=== PATIENT | male | born 1950 | race Caucasian/White ===

== ENCOUNTER 2016-12-28 20:33 | Inpatient (IN) | payer MEDICARE, OTHER ==
[~2016-12-28] VITALS: Ht 175.3 cm; Wt 85.6 kg
[~2016-12-28 20:33] MED LIST: /ADVA50050; /ADVA50050 IN; /DILT30TAB OR; /DILT60TAB PO; /GLIM2TA; /GLIM4TA; /GLYB5TA PO; /INSU7030 SC; /IPRA3SP; /MOXI40TA OR; /PANT40TA; /QUIN20TA; /TIOT18INH INH; /WARF3TA OR; /WARF5TA; /WARF5TA OR; ALBU1.25 IN; ALBU83IN; ALBU83IN IN; ALBUTEROL; ALDA25TA2 OR; CARV12.5 PO; CEFT500T; COLA100C2; CORE12.5; CORE12.5 OR; CORE25TA PO; COUM2.5T11 PO; DIGO0.25 PO; DIGO0.257; DIGO0.257 OR; DIGO25TA PO; EUCECRE2 EX; FLAG500T PO; FLEC50TA PO; FLEC50TA2 OR; FLEXERIL PO; FLOVENT INH; FURO40TA2; FURO40TA2 PO; GLYB5TA PO; INSULANT SC; IPRASOL4 INH; LANO0.252; LASI40TA OR; LISI-542 PO; METF500T PO; Mucinex PO; NITR0.4S SL; NYSTATIN ORAL SS; PRED10TA FT; PRED10TA2 PO; PRED20TA OR; PRED20TA PO; PRIN10TA OR; SIMV20TA2 PO; SLOWTAB OR; TORS20TA2 PO; TRAM50TA2 OR; VENTAER; VENTAER INH; VICO5TAB OR; VITA100066 PO; VITA400C2 PO; VITAD1000T OR; VITMTA PO; WARF-18 PO; WARF-23 PO; Warfarin PO; ZOCO40TA OR
[2016-12-28] MEDS: IPRATROPIUM 0.5MG/ALBUTEROL 2.5MG INH SOL UD 3ML (DUONEB)(J7620) NEB PRN ×2 (22:01→23:03)
[2016-12-28 22:07] LABS: INR 1.7
[2016-12-28 22:09] LABS: BASO # 0.1 K/mm3 (0.0-0.2); BASO % 0.5 % (0.0-1.0); EOS # 0.3 K/mm3 (0.0-0.50); EOS % 2.4 % (0.0-3.0); LARGE UNSTAINED CELL # 0.1 K/mm3 (0.0-0.4); LARGE UNSTAINED CELL % 1.1 % (0.0-4.0); LYMPH # 1.4 K/mm3 (1.5-4.5); LYMPH % 9.6 % (24.0-44.0); MEAN CORPUSCULAR HGB CONC 31.5 g/dl (32.0-36.5); MEAN CORPUSCULAR VOLUME 95.1 fl (80.0-96.0); MONO # 0.6 K/mm3 (0.0-0.8); MONO % 4.4 % (0.0-5.0); NEUTROPHILS # 10.4 K/mm3 (1.8-7.7); NEUTROPHILS % 82.1 % (36.0-66.0); PLATELET COUNT, AUTOMATED 174 k/mm3 (150-450); RED CELL DISTRIBUTION WIDTH 13.2 % (11.5-14.5); WHITE BLOOD COUNT 12.6 K/mm3 (4.0-10.0)
[2016-12-28 22:16] LABS: ANION GAP 4 MEQ/L (8-16); BLOOD UREA NITROGEN 31 MG/DL (7-18); CALCIUM LEVEL 8.7 MG/DL (8.8-10.2); CARBON DIOXIDE LEVEL 42 MEQ/L (21-32); CHLORIDE LEVEL 94 MEQ/L (98-107); CREATININE FOR GFR 0.84 MG/DL (0.70-1.30); GLOMERULAR FILTRATION RATE > 60.0 (>49); GLUCOSE, FASTING 276 MG/DL (80-110); POTASSIUM SERUM 4.6 MEQ/L (3.5-5.1); SODIUM LEVEL 140 MEQ/L (136-145)
[2016-12-28 22:26] LABS: ALBUMIN 2.9 GM/DL (3.2-5.2); ALBUMIN/GLOBULIN RATIO 0.78 (1.00-1.93); ALKALINE PHOSPHATASE 97 U/L (45-117); ALT/SGPT 10 U/L (12-78); AST/SGOT 10 U/L (15-37); BILIRUBIN,DIRECT < 0.1 MG/DL (0.0-0.2); BILIRUBIN,TOTAL 0.2 MG/DL (0.2-1.0); TOTAL PROTEIN 6.6 GM/DL (6.4-8.2)
[2016-12-28 23:18] LABS: ABG BASE EXCESS 10.1 (-2.0-2.0); ABG HCO3 37.8 MEQ/L (22.0-26.0); ABG STANDARD HCO3 33.7 MEQ/L (22.0-26.0); ABG TOTAL CO2 39.9 MEQ/L (23.0-31.0); ABG pH (ARTERIAL) 7.364 UNITS (7.350-7.450)
[2016-12-28 23:20] LABS: ABG PARTIAL PRESSURE CO2 67.8 mmHg (35.0-45.0)
--- NOTE | 2016-12-28 23:30 | REPUSA ---
Clinical history: Pain, swelling. comparison: 11/02/2006. Findings: The common femoral veins bilaterally compress normally and demonstrate normal color Doppler flow. Normal venous waveforms with augmentation are seen in this region. However, there is only pa rtial compressibility seenthroughout the superficial femoral and popliteal veins bilaterally. This is grossly unchanged since the prior study of 2006. The distal venous structures appear unremarkable. Impression: Chronic nonocclusive thrombus demonstrated in the superficial femoral and popliteal veins bilaterally , grossly unchanged since 2006. No acute findings.
[2016-12-29] MEDS ORDERED: TYLE500T78 PO (00:12)
[2016-12-29] MEDS ORDERED: GLIP5TAB15 PO (00:12)
[2016-12-29] MEDS ORDERED: METF-699 PO (00:12)
[2016-12-29] MEDS ORDERED: WARF-18 PO (00:12)
[2016-12-29] MEDS ORDERED: DEXTROSE 50% 50 ML SYRINGE IV PRN (00:15)
[2016-12-29] MEDS ORDERED: GLUCAGON FOR INJ 1 MG VIAL (J1610) SC PRN (00:15)
[2016-12-29] MEDS ORDERED: ALBUTEROL SULFATE 2.5 MG/0.5 ML INH NEB SOLN NEB PRN (00:15)
[2016-12-29] MEDS ORDERED: GLUCOSE 4 GM CHEW TABLET PO PRN (00:15)
[2016-12-29 00:45] VITALS: BP 176/77
--- NOTE | 2016-12-29 01:13 | REP ---
Clinical: Dyspnea and cough. Technique: PA and lateral. Comparison: 06/05/2016. Findings: Diffuse chronic fibroatelectatic changes are appreciated. Superimposed scattered atelectasis and subtle infiltrate involving the perihilar and lower lobe regions cannot be excluded. No effusion. No pneumothorax. Skeletal structures demonstrate a dilated osteopenia. Cardiac silhouette is normal. Pacemaker stable. Impression: Diffuse chronic fibro atelectatic changes and scarring similar to prior examination. Subtle superimposed acute process cannot be excluded. Signed by Sixto Winters MD 12/29/2016 01:05 A
[2016-12-29] MEDS: methylPREDNISolone INJ 40 MG/1 ML VIAL (J2920) IV SCH ×4 (02:00→21:01)
[2016-12-29] MEDS: SENOKOT S TAB PO SCH ×3 (02:16→21:02)
[2016-12-29] MEDS: SIMVASTATIN 20 MG TAB PO SCH ×2 (02:16→21:01)
[2016-12-29] MEDS: CARVedilol 12.5 MG TAB PO SCH ×3 (02:16→21:02)
[2016-12-29] MEDS: cefTRIAXone SOD 1 GM in D5W MINI-BAG PLUS 50 ML IV SCH (02:17)
[2016-12-29] MEDS: IPRATROPIUM 0.5MG/ALBUTEROL 2.5MG INH SOL UD 3ML (DUONEB)(J7620) NEB SCH ×5 (03:51→19:48)
[2016-12-29 06:00] VITALS: BP 154/68
--- NOTE | 2016-12-29 06:06 | ECGEPIP ---
Stationary ECG Study [facility] - ED Test Date: 2016-12-28 Pat Name: EAGLE DAY Department: Room: - Gender: M Pharmacy Assistant: catalina : 1950 Requested By: ANTONY Vargas Order Number: [id number] Reading MD: Tony Calle Measurements Intervals [place] Rate: 90 P: 104 OR: 172 QRS: -59 QRSD: 144 T: 110 QT: 362 QTc: 443 Interpretive Statements SINUS RHYTHM WITH FREQUENT SUPRAVENTRICULAR PREMATURE COMPLEXES IN A BIGEMINAL PATTERN RBBB LEFT VENTRICULAR HYPERTROPHY AND ST-T CHANGE RHYTHM CHANGE COMPARED TO 06/12/16 Electronically Signed On 12-29-2016 6:05:51 EDT by Tony Calle
[2016-12-29 06:58] LABS: BASO % 0.1 % (0.0-1.0); EOS % 0.1 % (0.0-3.0); LARGE UNSTAINED CELL % 0.2 % (0.0-4.0); LYMPH # 0.7 K/mm3 (1.5-4.5); LYMPH % 7.6 % (24.0-44.0); MEAN CORPUSCULAR HEMOGLOBIN 30.4 pg (27.0-33.0); MEAN CORPUSCULAR HGB CONC 31.4 g/dl (32.0-36.5); MEAN CORPUSCULAR VOLUME 96.8 fl (80.0-96.0); MONO # 0.1 K/mm3 (0.0-0.8); MONO % 0.9 % (0.0-5.0); NEUTROPHILS # 7.8 K/mm3 (1.8-7.7); NEUTROPHILS % 91.1 % (36.0-66.0); PLATELET COUNT, AUTOMATED 152 k/mm3 (150-450); WHITE BLOOD COUNT 8.6 K/mm3 (4.0-10.0)
[2016-12-29] MEDS: HumaLOG INSULIN (NovoLOG) PER UNIT SC SCH ×4 (07:30→21:02)
[2016-12-29 07:33] LABS: ANION GAP 3 MEQ/L (8-16); BLOOD UREA NITROGEN 32 MG/DL (7-18); CALCIUM LEVEL 8.3 MG/DL (8.8-10.2); CARBON DIOXIDE LEVEL 41 MEQ/L (21-32); CHLORIDE LEVEL 93 MEQ/L (98-107); CREATININE FOR GFR 0.79 MG/DL (0.70-1.30); DIGOXIN LEVEL 1.1 NG/ML (0.5-2.0); GLOMERULAR FILTRATION RATE > 60.0 (>49); GLUCOSE, FASTING 362 MG/DL (80-110); SODIUM LEVEL 137 MEQ/L (136-145)
--- NOTE | 2016-12-29 09:11 | HPE ---
DATE OF ADMISSION: 12/29/2016 PRIMARY CARE PROVIDER: Sully Rhoda. CHIEF COMPLAINT: Increasing shortness of breath and difficulty breathing for 3 days. PAST MEDICAL HISTORY: Chronic obstructive pulmonary disease (COPD). Chronic hypoxic and hypercarbic respiratory failure. Atrial fibrillation with history of tachybrady syndrome, has pacemaker. Chronic bilateral deep venous thrombosis (DVT)s. Hypertension. Diabetes. Systolic congestive heart failure. Obstructive sleep apnea (AMILCAR) not compliant with CPAP. HISTORY OF PRESENT ILLNESS: This is a 66-year-old male who was in his usual state of health until about 3 days ago when he started developing shortness of breath which worsened over the course of next 3 days and today he used four nebulizer treatments in 8 hour period without any improvement in his breathing so called EMS. EMS went to his house and found him to be hypoxic to 76% with his usual 3 liters of oxygen so was brought to the emergency room. In the ED, the patient was found to have chronic obstructive pulmonary disease (COPD) exacerbation. Patient was given several nebulizers with some improvement in his breathing status, however, still continued to be wheezy and tight and short of breath, so the patient was admitted to the hospitalist service for chronic obstructive pulmonary disease (COPD) exacerbation. Patient had lab work done in the ED which showed chronic hypercarbia and hypoxia with normal pH and ABG. WBC was mildly elevated to 12.6. He was mildly anemic to 10.7. His sugars were elevated to 276. Patient had ultrasound of both the lower extremities done which showed bilateral chronic nonocclusive thrombus of the superficial femoral and popliteal veins unchanged from 2006. Had a chest x-ray done which showed diffuse chronic fibroatelectatic changes and scarring similar to prior examination. Subtle superimposed acute process cannot be excluded. Patient's EKG showed atrial fibrillation with controlled rate with intermittent pacemaker complexes. PAST SURGICAL HISTORY: Pacemaker placement. Tonsillectomy. Vascular surgery for deep venous thrombosis (DVT) of the right lower extremity. ALLERGIES: AMINOGLYCOSIDES, BACITRACIN, NEOMYCIN, PEANUT and POLYMYXIN B. HOME MEDICATIONS: - Tylenol 1000 mg by mouth every 6 hours as needed pain - albuterol/ipratropium nebulizer solution four times a day - Coreg 12.5 mg by mouth twice daily - cholecalciferol 1000 units by mouth daily - digoxin 0.25 mg by mouth daily - glipizide 5 mg by mouth daily - lisinopril 5 mg by mouth daily - metformin 500 mg by mouth daily - multivitamins one tablet daily - simvastatin 20 mg at bedtime - torsemide 20 mg by mouth daily - vitamin E 400 units by mouth daily - Coumadin 2.5 mg by mouth daily SOCIAL HISTORY: Patient smokes about 5 to 6 cigarettes per day. Does not drink alcohol or abuse recreational drugs. FAMILY HISTORY: Nothing significant. REVIEW OF SYSTEMS: Patient denied any fever or chills but does have some chronic cough without any expectoration but not changed from usual. Denies any abdominal pain, nausea, vomiting or diarrhea. Does have some intermittent palpitation. Says he may have some sick contact as has young grandchildren at home. PHYSICAL EXAMINATION: Vital signs: Temperature 98.3, pulse 91, respiratory rate 22, blood pressure 147/67, pulse oximetry 95% with 4 liters nasal cannula. General: Patient awake, alert, oriented times three, lying down in bed in no acute distress. HEENT: Normocephalic, atraumatic. Moist mucous membranes. Anicteric eyes. Chest: Bilateral diffuse wheezing, decreased breath sounds. Cardiovascular: S1, S2, irregular. No rub, murmur or gallop. Abdomen: Soft, nontender. Bowel sounds present. Extremities: 1-2+ edema. LABORATORY DATA: WBC 12.6, hemoglobin 10.7, platelets 174. Sodium 140, potassium 4.6, chloride 94, bicarbonate 42, BUN 31, creatinine 0.8, glucose 276, calcium 8.6, liver function tests are normal. Cardiac enzymes negative. BNP 369. Chest x-ray and vascular ultrasound reviewed as noted above. ASSESSMENT AND PLAN: This is a 66-year-old male admitted for chronic obstructive pulmonary disease (COPD) exacerbation. PLAN: 1. For chronic obstructive pulmonary disease (COPD) exacerbation, we will continue the patient on nebulizer solution. Will give IV steroids and ceftriaxone as chest x-ray cannot rule out any underlying new infiltrates. 2. Diabetes. Will continue patient on glipizide and sliding scale insulin. 3. Hypertension. Will continue the patient on Coreg. 4. Chronic bilateral deep venous thrombosis (DVT)s. Will continue the patient on Coumadin. 5. Hyperlipidemia. Will continue the patient on simvastatin. 6. Chronic systolic congestive heart failure. Will continue the patient on torsemide. 7. Atrial fibrillation. Will continue the patient on digoxin, metoprolol, Coreg and Coumadin. 8. Deep venous thrombosis (DVT) prophylaxis. Patient is on Coumadin. 9. Gastrointestinal (GI) prophylaxis with pantoprazole has been ordered.
[2016-12-29] MEDS: DIGOXIN 0.25 MG TAB PO SCH (10:09)
[2016-12-29] MEDS: TORSEMIDE 20 MG TAB PO SCH (10:09)
[2016-12-29] MEDS: LISINOPRIL 5 MG TAB PO SCH (10:09)
[2016-12-29] MEDS: glipiZIDE XL 5 MG TABCR PO SCH (10:10)
[2016-12-29] MEDS: WARFARIN SOD 2.5 MG TAB PO SCH (10:10)
[2016-12-29] MEDS: PANTOPRAZOLE 40MG TAB (PROTONIX) PO SCH (10:10)
[2016-12-29 14:00] VITALS: BP 133/62
--- NOTE | 2016-12-29 16:38 | IPNPDOC ---
Text Note Date of Service The patient was seen on 12/29/16. NOTE Subjective: Patient is a 66 year old male with a PMHx of COPD on 3L of O2 at home , A. fib, Tachy/dawson syndrome s/p PM, Chronic bilateral DVT, HTN, DM2, Systolic CHF, AMILCAR not compliant with CPAP who presented to the ER with shortness of breath for 3 days. Patient came to the ER after his breathing did not improved with nebulization and was found to be hypoxic at 76%. He was found to be wheezing. He was admitted to the hospitalist service for acute COPD exacerbation. Patient was seen and examined at the bedside. He notes improvement in his breathing and denied any other issues. Objective: Vitals (See below) General: Lying in bed, no acute distress, comfortable, AAOx3 HEENT: NC, AT CVS: Irregularly irregular , +S1S2 Lungs: Fair air entry b/l, + Wheezing bilaterally Abdomen: Soft, ND, NT, +BSx4 Extremities: +PPx4, - Edema, - Calf tenderness Assessment and plan: 1. Dyspnea - likely 2/2 acute hypercapnic and acute on chronic hypoxic respiratory failure - likely 2/2 acute COPD exacerbation - Presented to ER with SOB not improved with nebulization treatment - Physical with diffuse wheezing - ABG revealed increased CO2 retention - CXR reveals diffuse chronic fibro-atelectatic changes, similar to prior - c/w Solumedrol, Duoneb and Ceftriaxone (Day #1) - Will start Advair 2. NIDDM2 - will start Levemir for better glycemic control - c/w ISS and Glipizide 3.HTN - BP well controlled - c/w Carvedilol and Lisinopril with holding parameters 4. Chronic bilateral DVT - US reveals persistant DVT, unchanged - INR of 1.70 - c/w Coumadin 2.5 - Will adjust tomorrow if not therapeutic 5. DLP - c/w simvastatin 6. Chronic systolic CHF - c/w Torsemide 7. A. fib - c/w Digoxin and Carvedilol - c/w Coumadin 8. GI prophylaxis - c/w Protonix 9. DVT prophylaxis - already on full anticoagulation with Coumadin VS,Fishbone, I+O VS, Fishbone, I+O Laboratory Tests 12/28/16 20:56 Red Blood Count 3.56 L, Mean Corpuscular Volume 95.1, Mean Corpuscular Hemoglobin 30.0, Mean Corpuscular Hemoglobin Concent 31.5 L, Red Cell Distribution Width 13.2, Neutrophils (%) (Auto) 82.1 H, Lymphocytes (%) (Auto) 9.6 L, Monocytes (%) (Auto) 4.4, Eosinophils (%) (Auto) 2.4, Basophils (%) (Auto ) 0.5, Neutrophils # (Auto) 10.4 H, Lymphocytes # (Auto) 1.4 L, Monocytes # ( Auto) 0.6, Eosinophils # (Auto) 0.3, Basophils # (Auto) 0.1, Calcium Level 8.7 L , Total Creatine Kinase 55 12/29/16 06:31 Red Blood Count 3.36 L, Mean Corpuscular Volume 96.8 H, Mean Corpuscular Hemoglobin 30.4, Mean Corpuscular Hemoglobin Concent 31.4 L, Red Cell Distribution Width 13.0, Neutrophils (%) (Auto) 91.1 H, Lymphocytes (%) (Auto) 7.6 L, Monocytes (%) (Auto) 0.9, Eosinophils (%) (Auto) 0.1, Basophils (%) (Auto ) 0.1, Neutrophils # (Auto) 7.8 H, Lymphocytes # (Auto) 0.7 L, Monocytes # (Auto ) 0.1, Eosinophils # (Auto) 0.0, Basophils # (Auto) 0.0, Calcium Level 8.3 L Vital Signs Date Time Temp Pulse Resp B/P (MAP) Pulse Ox O2 Delivery O2 Flow Rate FiO2 12/29/16 10:25 Nasal Cannula 5.0 12/29/16 10:09 134/62 12/29/16 10:09 70 12/29/16 06:00 98.5 18 88 I&O- Last 24 Hours up to 6 AM 12/29/16 06:00 Intake Total 480 ml Output Total 300 ml Balance 180 ml CURT MAYBERRY MD December 29, 2016 16:38
[2016-12-29 19:41] VITALS: O2SAT 95
[2016-12-29] MEDS: ADVAIR DISKUS 250/50 INH PWD INH SCH (19:50)
[2016-12-29] MEDS: LEVEMIR (INSULIN DETEMIR) 1 UNITS/0.01ML SC SCH (21:00)
[2016-12-29 22:00] VITALS: BP 150/67
[2016-12-30 00:41] VITALS: O2SAT 98
[2016-12-30] MEDS: IPRATROPIUM 0.5MG/ALBUTEROL 2.5MG INH SOL UD 3ML (DUONEB)(J7620) NEB SCH ×8 (00:48→22:29)
[2016-12-30] MEDS: cefTRIAXone SOD 1 GM in D5W MINI-BAG PLUS 50 ML IV SCH (01:18)
[2016-12-30] MEDS: methylPREDNISolone INJ 40 MG/1 ML VIAL (J2920) IV SCH ×4 (01:18→23:20)
[2016-12-30 05:46] VITALS: O2SAT 97
[2016-12-30 06:00] VITALS: BP 138/63
[2016-12-30 06:04] LABS: ABG BASE EXCESS 11.6 (-2.0-2.0); ABG HCO3 41.2 MEQ/L (22.0-26.0); ABG PARTIAL PRESSURE O2 152.6 mmHg (75.0-100.0); ABG STANDARD HCO3 35.4 MEQ/L (22.0-26.0); ABG pH (ARTERIAL) 7.275 UNITS (7.350-7.450)
[2016-12-30 06:10] LABS: ABG PARTIAL PRESSURE CO2 90.8 mmHg (35.0-45.0)
[2016-12-30 06:56] LABS: BASO % 0.1 % (0.0-1.0); EOS % 0.1 % (0.0-3.0); INR 2.08; LARGE UNSTAINED CELL # 0.1 K/mm3 (0.0-0.4); LARGE UNSTAINED CELL % 0.5 % (0.0-4.0); LYMPH % 8.9 % (24.0-44.0); MEAN CORPUSCULAR HEMOGLOBIN 29.8 pg (27.0-33.0); MEAN CORPUSCULAR HGB CONC 31.5 g/dl (32.0-36.5); MEAN CORPUSCULAR VOLUME 94.6 fl (80.0-96.0); MONO # 0.3 K/mm3 (0.0-0.8); MONO % 3.1 % (0.0-5.0); NEUTROPHILS # 8.9 K/mm3 (1.8-7.7); NEUTROPHILS % 87.2 % (36.0-66.0); PLATELET COUNT, AUTOMATED 173 k/mm3 (150-450); RED CELL DISTRIBUTION WIDTH 13.1 % (11.5-14.5); WHITE BLOOD COUNT 10.2 K/mm3 (4.0-10.0)
[2016-12-30 07:12] LABS: ANION GAP 2 MEQ/L (8-16); CALCIUM LEVEL 8.3 MG/DL (8.8-10.2); CARBON DIOXIDE LEVEL 40 MEQ/L (21-32); CHLORIDE LEVEL 95 MEQ/L (98-107); GLUCOSE, FASTING 325 MG/DL (80-110); SODIUM LEVEL 137 MEQ/L (136-145)
[2016-12-30 07:24] LABS: POTASSIUM SERUM 5.3 MEQ/L (3.5-5.1)
[2016-12-30 07:25] LABS: BLOOD UREA NITROGEN 55 MG/DL (7-18); CREATININE FOR GFR 1.18 MG/DL (0.70-1.30); GLOMERULAR FILTRATION RATE > 60.0 (>49)
[2016-12-30] MEDS: SENOKOT S TAB PO SCH ×2 (09:00→19:59)
[2016-12-30] MEDS: ADVAIR DISKUS 250/50 INH PWD INH SCH ×2 (09:00→19:54)
[2016-12-30] MEDS: PANTOPRAZOLE 40MG TAB (PROTONIX) PO SCH (09:25)
[2016-12-30] MEDS: DIGOXIN 0.25 MG TAB PO SCH (09:26)
[2016-12-30] MEDS: LISINOPRIL 5 MG TAB PO SCH (09:26)
[2016-12-30] MEDS: WARFARIN SOD 2.5 MG TAB PO SCH (09:26)
[2016-12-30] MEDS: CARVedilol 12.5 MG TAB PO SCH ×2 (09:26→19:59)
[2016-12-30] MEDS: TORSEMIDE 20 MG TAB PO SCH (09:26)
[2016-12-30] MEDS: glipiZIDE XL 5 MG TABCR PO SCH (09:27)
[2016-12-30] MEDS: HumaLOG INSULIN (NovoLOG) PER UNIT SC SCH ×4 (09:29→20:00)
[2016-12-30] MEDS ORDERED: SOD POLYSTYRENE SULFONATE SUSP 15 GM/60 ML UD PO ONE (11:15)
--- NOTE | 2016-12-30 12:59 | IPNPDOC ---
Text Note Date of Service The patient was seen on 12/30/16. NOTE Subjective: Patient is a 66 year old male with a PMHx of COPD on 3L of O2 at home , A. fib, Tachy/dawson syndrome s/p PM, Chronic bilateral DVT, HTN, DM2, Systolic CHF, AMILCAR not compliant with CPAP who presented to the ER with shortness of breath for 3 days. Patient came to the ER after his breathing did not improved with nebulization and was found to be hypoxic at 76%. He was found to be wheezing. He was admitted to the hospitalist service for acute COPD exacerbation. Patient was seen and examined at the bedside. He notes that overnight he had some breathing difficulty, but is not experiencing any problems after receiving a breathing treatment. Objective: Vitals (See below) General: Lying in bed, no acute distress, comfortable, AAOx3 HEENT: NC, AT CVS: Irregularly irregular , +S1S2 Lungs: Fair air entry b/l, + Wheezing bilaterally Abdomen: Soft, ND, NT, +BSx4 Extremities: +PPx4, - Edema, - Calf tenderness Assessment and plan: 1. Dyspnea - likely 2/2 acute hypercapnic and acute on chronic hypoxic respiratory failure - likely 2/2 acute COPD exacerbation - Presented to ER with SOB not improved with nebulization treatment - Physical with diffuse wheezing but no signs of respiratory distress upon evaluation this AM - ABG revealed increased CO2 retention; this morning showed worsening - CXR reveals diffuse chronic fibro-atelectatic changes, similar to prior - c/w Solumedrol, Advair, Duoneb and Ceftriaxone (Day #2) - Will adjust dose of Solumedrol 2. History of AMILCAR - Has had sleep study completed and patient was told he needed a CPAP - Has had titration study completed for mask fitting - Patient is not compliant with mask - Will c/w O2 therapy at night 3. NIDDM2 - c/w ISS, Levemir and Glipizide 4. HTN - BP well controlled - c/w Carvedilol and Lisinopril with holding parameters 5. Chronic bilateral DVT - US reveals persistent DVT, unchanged - INR of 2.08 - c/w Coumadin 2.5 6. DLP - c/w simvastatin 7. Chronic systolic CHF - c/w Torsemide 8. A. fib - c/w Digoxin and Carvedilol - c/w Coumadin 9. GI prophylaxis - c/w Protonix 10. DVT prophylaxis - already on full anticoagulation with Coumadin VS,Fishbone, I+O VS, Fishbone, I+O Laboratory Tests 12/30/16 06:24 Red Blood Count 3.29 L, Mean Corpuscular Volume 94.6, Mean Corpuscular Hemoglobin 29.8, Mean Corpuscular Hemoglobin Concent 31.5 L, Red Cell Distribution Width 13.1, Neutrophils (%) (Auto) 87.2 H, Lymphocytes (%) (Auto) 8.9 L, Monocytes (%) (Auto) 3.1, Eosinophils (%) (Auto) 0.1, Basophils (%) (Auto ) 0.1, Neutrophils # (Auto) 8.9 H, Lymphocytes # (Auto) 1.0 L, Monocytes # (Auto ) 0.3, Eosinophils # (Auto) 0.0, Basophils # (Auto) 0.0, Calcium Level 8.3 L Vital Signs Date Time Temp Pulse Resp B/P (MAP) Pulse Ox O2 Delivery O2 Flow Rate FiO2 12/30/16 09:26 138/63 12/30/16 09:26 79 12/30/16 06:00 98.3 16 99 Nasal Cannula 5.0 I&O- Last 24 Hours up to 6 AM 12/30/16 06:00 Intake Total 1420 ml Output Total 1425 ml Balance -5 ml CURT MAYBERRY MD December 30, 2016 12:59
[2016-12-30 14:00] VITALS: BP 127/87
[2016-12-30] MEDS: SIMVASTATIN 20 MG TAB PO SCH (19:59)
[2016-12-30] MEDS: LEVEMIR (INSULIN DETEMIR) 1 UNITS/0.01ML SC SCH (20:00)
[2016-12-30 22:00] VITALS: BP 121/83
[2016-12-31] MEDS: cefTRIAXone SOD 1 GM in D5W MINI-BAG PLUS 50 ML IV SCH (01:23)
[2016-12-31] MEDS: IPRATROPIUM 0.5MG/ALBUTEROL 2.5MG INH SOL UD 3ML (DUONEB)(J7620) NEB SCH ×6 (03:19→23:31)
[2016-12-31 06:00] VITALS: BP 163/86
[2016-12-31 06:32] LABS: ABG BASE EXCESS 10.4 (-2.0-2.0); ABG HCO3 40.1 MEQ/L (22.0-26.0); ABG PARTIAL PRESSURE O2 83.3 mmHg (75.0-100.0); ABG STANDARD HCO3 34.1 MEQ/L (22.0-26.0); ABG TOTAL CO2 42.7 MEQ/L (23.0-31.0)
[2016-12-31 06:35] LABS: ABG PARTIAL PRESSURE CO2 87.2 mmHg (35.0-45.0)
[2016-12-31 07:12] LABS: BASO % 0.1 % (0.0-1.0); EOS % 0.1 % (0.0-3.0); LARGE UNSTAINED CELL # 0.2 K/mm3 (0.0-0.4); LARGE UNSTAINED CELL % 1.1 % (0.0-4.0); LYMPH # 1.1 K/mm3 (1.5-4.5); LYMPH % 6.5 % (24.0-44.0); MEAN CORPUSCULAR HEMOGLOBIN 29.5 pg (27.0-33.0); MEAN CORPUSCULAR HGB CONC 30.7 g/dl (32.0-36.5); MEAN CORPUSCULAR VOLUME 96.2 fl (80.0-96.0); MONO # 0.5 K/mm3 (0.0-0.8); MONO % 3.3 % (0.0-5.0); NEUTROPHILS # 12.6 K/mm3 (1.8-7.7); NEUTROPHILS % 88.9 % (36.0-66.0); PLATELET COUNT, AUTOMATED 185 k/mm3 (150-450); RED CELL DISTRIBUTION WIDTH 13.1 % (11.5-14.5); WHITE BLOOD COUNT 14.2 K/mm3 (4.0-10.0)
[2016-12-31 07:18] LABS: INR 1.81
[2016-12-31 07:32] LABS: ANION GAP 1 MEQ/L (8-16); BLOOD UREA NITROGEN 56 MG/DL (7-18); CARBON DIOXIDE LEVEL 42 MEQ/L (21-32); CHLORIDE LEVEL 95 MEQ/L (98-107); CREATININE FOR GFR 1.07 MG/DL (0.70-1.30); GLOMERULAR FILTRATION RATE > 60.0 (>49); GLUCOSE, FASTING 276 MG/DL (80-110); POTASSIUM SERUM 4.9 MEQ/L (3.5-5.1); SODIUM LEVEL 138 MEQ/L (136-145)
[2016-12-31] MEDS: CARVedilol 12.5 MG TAB PO SCH ×2 (08:34→21:06)
[2016-12-31] MEDS: methylPREDNISolone INJ 40 MG/1 ML VIAL (J2920) IV SCH ×2 (08:34→21:05)
[2016-12-31] MEDS: glipiZIDE XL 5 MG TABCR PO SCH (08:34)
[2016-12-31] MEDS: WARFARIN SOD 2.5 MG TAB PO SCH (08:34)
[2016-12-31] MEDS: LISINOPRIL 5 MG TAB PO SCH (08:35)
[2016-12-31] MEDS: PANTOPRAZOLE 40MG TAB (PROTONIX) PO SCH (08:35)
[2016-12-31] MEDS: DIGOXIN 0.25 MG TAB PO SCH (08:35)
[2016-12-31] MEDS: HumaLOG INSULIN (NovoLOG) PER UNIT SC SCH ×4 (08:37→22:06)
[2016-12-31] MEDS: SENOKOT S TAB PO SCH ×2 (08:43→21:06)
[2016-12-31] MEDS ORDERED: PREVNAR 13 VACCINE SYRINGE (CPT CODE:90670) IM ONE (09:00)
[2016-12-31] MEDS: ADVAIR DISKUS 250/50 INH PWD INH SCH ×2 (09:00→21:00)
[2016-12-31] MEDS: VITAMIN D 1,000 INTERNATIONAL UNITS TABLET PO SCH (09:00)
[2016-12-31] MEDS: VITAMIN E 400 INTERNATIONAL UNITS CAP PO SCH (09:00)
[2016-12-31] MEDS: MULTIVITAMINS/MINERALS THERAP 1 TAB PO SCH (09:00)
--- NOTE | 2016-12-31 13:40 | IPNPDOC ---
Text Note Date of Service The patient was seen on 12/31/16. NOTE Subjective: Patient is a 66 year old male with a PMHx of COPD on 3L of O2 at home , A. fib, Tachy/dawson syndrome s/p PM, Chronic bilateral DVT, HTN, DM2, Systolic CHF, AMILCAR not compliant with CPAP who presented to the ER with shortness of breath for 3 days. Patient came to the ER after his breathing did not improved with nebulization and was found to be hypoxic at 76%. He was found to be wheezing. He was admitted to the hospitalist service for acute COPD exacerbation. Patient was seen and examined at the bedside. Patient notes that over the last 2 days he has had night time awakenings where he is very short of breath. They resolve after breathing treatments and don't occur during the day. he denies chest pain or palpitations. Denies any orthopnea. Objective: Vitals (See below) General: Lying in bed, no acute distress, comfortable, AAOx3 HEENT: NC, AT CVS: Irregularly irregular , +S1S2 Lungs: Fair air entry b/l, + Wheezing bilaterally Abdomen: Soft, ND, NT, +BSx4 Extremities: +PPx4, - Edema, - Calf tenderness Assessment and plan: 1. Dyspnea - likely 2/2 acute hypercapnic and acute on chronic hypoxic respiratory failure - likely 2/2 acute COPD exacerbation - Presented to ER with SOB not improved with nebulization treatment - Physical with no respiratory distress, but mild diffuse wheezing - ABG again reveals CO2 retention - CXR reveals diffuse chronic fibro-atelectatic changes, similar to prior - c/w Solumedrol, Advair, Duoneb and Ceftriaxone (Day #3) - Will continue to taper dose of Solumedrol 2. History of AMILCAR - Has had sleep study completed and patient was told he needed a CPAP - Has had titration study completed for mask fitting - Patient has a CPAP machine at home that he reports does not function correctly - Will c/w O2 therapy at night - Will need referral to pulmonary for another sleep study 3. NIDDM2 - c/w ISS, Levemir and Glipizide 4. HTN - BP well controlled - c/w Carvedilol and Lisinopril with holding parameters 5. Chronic bilateral DVT - US reveals persistent DVT, unchanged - INR of 1.81 - c/w Coumadin 2.5 6. DLP - c/w simvastatin 7. Chronic systolic CHF - c/w Torsemide 8. A. fib - c/w Digoxin and Carvedilol - c/w Coumadin 9. GI prophylaxis - c/w Protonix 10. DVT prophylaxis - already on full anticoagulation with Coumadin VS,Fishbone, I+O VS, Fishbone, I+O Laboratory Tests 12/31/16 06:49 Red Blood Count 3.51 L, Mean Corpuscular Volume 96.2 H, Mean Corpuscular Hemoglobin 29.5, Mean Corpuscular Hemoglobin Concent 30.7 L, Red Cell Distribution Width 13.1, Neutrophils (%) (Auto) 88.9 H, Lymphocytes (%) (Auto) 6.5 L, Monocytes (%) (Auto) 3.3, Eosinophils (%) (Auto) 0.1, Basophils (%) (Auto ) 0.1, Neutrophils # (Auto) 12.6 H, Lymphocytes # (Auto) 1.1 L, Monocytes # ( Auto) 0.5, Eosinophils # (Auto) 0.0, Basophils # (Auto) 0.0, Calcium Level 8.0 L Vital Signs Date Time Temp Pulse Resp B/P (MAP) Pulse Ox O2 Delivery O2 Flow Rate FiO2 12/31/16 09:05 Nasal Cannula 4.0 12/31/16 08:35 163/86 12/31/16 08:35 108 12/31/16 06:00 99.4 16 99 I&O- Last 24 Hours up to 6 AM 12/31/16 05:59 Intake Total 1320 ml Output Total 2675 ml Balance -1355 ml CURT MAYBERRY MD December 31, 2016 13:40
[2016-12-31] MEDS: SIMVASTATIN 20 MG TAB PO SCH (21:06)
[2016-12-31] MEDS: LEVEMIR (INSULIN DETEMIR) 1 UNITS/0.01ML SC SCH (21:06)
[2016-12-31 22:00] VITALS: BP 138/72
[2017-01-01] MEDS: cefTRIAXone SOD 1 GM in D5W MINI-BAG PLUS 50 ML IV SCH (01:41)
[2017-01-01] MEDS: IPRATROPIUM 0.5MG/ALBUTEROL 2.5MG INH SOL UD 3ML (DUONEB)(J7620) NEB SCH ×6 (03:31→23:36)
[2017-01-01 06:00] VITALS: BP 162/85
[2017-01-01 06:56] LABS: BASO % 0.3 % (0.0-1.0); EOS # 0.1 K/mm3 (0.0-0.50); EOS % 0.4 % (0.0-3.0); LARGE UNSTAINED CELL # 0.2 K/mm3 (0.0-0.4); LARGE UNSTAINED CELL % 1.8 % (0.0-4.0); LYMPH # 1.4 K/mm3 (1.5-4.5); LYMPH % 8.6 % (24.0-44.0); MEAN CORPUSCULAR HEMOGLOBIN 29.8 pg (27.0-33.0); MEAN CORPUSCULAR HGB CONC 30.8 g/dl (32.0-36.5); MEAN CORPUSCULAR VOLUME 96.5 fl (80.0-96.0); MONO # 0.6 K/mm3 (0.0-0.8); MONO % 4.5 % (0.0-5.0); NEUTROPHILS % 84.4 % (36.0-66.0); PLATELET COUNT, AUTOMATED 195 k/mm3 (150-450); RED CELL DISTRIBUTION WIDTH 13.2 % (11.5-14.5); WHITE BLOOD COUNT 13.1 K/mm3 (4.0-10.0)
[2017-01-01 07:01] LABS: INR 1.68
[2017-01-01 07:13] LABS: ANION GAP 1 MEQ/L (8-16); BLOOD UREA NITROGEN 56 MG/DL (7-18); CARBON DIOXIDE LEVEL 41 MEQ/L (21-32); CHLORIDE LEVEL 98 MEQ/L (98-107); CREATININE FOR GFR 1.03 MG/DL (0.70-1.30); GLOMERULAR FILTRATION RATE > 60.0 (>49); GLUCOSE, FASTING 304 MG/DL (80-110); SODIUM LEVEL 140 MEQ/L (136-145)
[2017-01-01 07:28] LABS: POTASSIUM SERUM 5.5 MEQ/L (3.5-5.1)
[2017-01-01] MEDS: HumaLOG INSULIN (NovoLOG) PER UNIT SC SCH ×4 (08:06→21:38)
[2017-01-01] MEDS: methylPREDNISolone INJ 40 MG/1 ML VIAL (J2920) IV SCH (08:16)
[2017-01-01] MEDS: ADVAIR DISKUS 250/50 INH PWD INH SCH ×2 (08:17→19:45)
[2017-01-01 08:52] VITALS: BP 146/70
[2017-01-01] MEDS: SENOKOT S TAB PO SCH ×2 (09:00→21:37)
[2017-01-01] MEDS: MULTIVITAMINS/MINERALS THERAP 1 TAB PO SCH (09:48)
[2017-01-01] MEDS: LISINOPRIL 5 MG TAB PO SCH (09:48)
[2017-01-01] MEDS: VITAMIN D 1,000 INTERNATIONAL UNITS TABLET PO SCH (09:48)
[2017-01-01] MEDS: glipiZIDE XL 5 MG TABCR PO SCH (09:48)
[2017-01-01] MEDS: PANTOPRAZOLE 40MG TAB (PROTONIX) PO SCH (09:48)
[2017-01-01] MEDS: VITAMIN E 400 INTERNATIONAL UNITS CAP PO SCH (09:48)
[2017-01-01] MEDS: CARVedilol 12.5 MG TAB PO SCH ×2 (09:49→21:37)
[2017-01-01] MEDS: WARFARIN SOD 2.5 MG TAB PO SCH (09:49)
[2017-01-01] MEDS: DIGOXIN 0.25 MG TAB PO SCH (09:51)
--- NOTE | 2017-01-01 13:15 | IPNPDOC ---
Text Note Date of Service The patient was seen on 01/01/17. NOTE Subjective: Patient is a 66 year old male with a PMHx of COPD on 3L of O2 at home , A. fib, Tachy/dawson syndrome s/p PM, Chronic bilateral DVT, HTN, DM2, Systolic CHF, AMILCAR not compliant with CPAP who presented to the ER with shortness of breath for 3 days. Patient came to the ER after his breathing did not improved with nebulization and was found to be hypoxic at 76%. He was found to be wheezing. He was admitted to the hospitalist service for acute COPD exacerbation. Patient was seen and examined at the bedside. Patient notes that over the last 2 days he has had night time awakenings where he is very short of breath. They resolve after breathing treatments and don't occur during the day. he denies chest pain or palpitations. Denies any orthopnea. Objective: Vitals (See below) General: Lying in bed, no acute distress, comfortable, AAOx3 HEENT: NC, AT CVS: Irregularly irregular , +S1S2 Lungs: Fair air entry b/l, + Wheezing bilaterally Abdomen: Soft, ND, NT, +BSx4 Extremities: +PPx4, - Edema, - Calf tenderness Assessment and plan: 1. Dyspnea - likely 2/2 acute on chronic hypercapnic and hypoxic respiratory failure - likely 2/2 acute COPD exacerbation - Presented to ER with SOB not improved with nebulization treatment - Physical with no respiratory distress, but mild diffuse wheezing - Prior ABGs again reveals CO2 retention; CMP reveals chronic CO2 retention - CXR reveals diffuse chronic fibro-atelectatic changes, similar to prior - c/w Advair, Duoneb and Ceftriaxone (Day #4) - Will d/c Solumedrol; will start Prednisone today - Evaluation for Trilogy ventilator for home 2. History of AMILCAR - Has had sleep study completed and patient was told he needed a CPAP - Has had titration study completed for mask fitting - Patient has a CPAP machine at home that he reports does not function correctly - Will c/w O2 therapy at night - Will need referral to pulmonary for another sleep study - Evaluation for Trilogy ventilator for home 3. NIDDM2 - c/w ISS, Levemir and Glipizide 4. HTN - BP well controlled - c/w Carvedilol and Lisinopril with holding parameters 5. Chronic bilateral DVT - US reveals persistent DVT, unchanged - INR of 1.68 - Will increase coumadin from 2.5 to 4 today 6. DLP - c/w simvastatin 7. Chronic systolic CHF - c/w Torsemide 8. A. fib - c/w Digoxin and Carvedilol - c/w Coumadin 9. GI prophylaxis - c/w Protonix 10. DVT prophylaxis - already on full anticoagulation with Coumadin VS,Fishbone, I+O VS, Fishbone, I+O Laboratory Tests 01/01/17 06:40 Red Blood Count 3.57 L, Mean Corpuscular Volume 96.5 H, Mean Corpuscular Hemoglobin 29.8, Mean Corpuscular Hemoglobin Concent 30.8 L, Red Cell Distribution Width 13.2, Neutrophils (%) (Auto) 84.4 H, Lymphocytes (%) (Auto) 8.6 L, Monocytes (%) (Auto) 4.5, Eosinophils (%) (Auto) 0.4, Basophils (%) (Auto ) 0.3, Neutrophils # (Auto) 11.0 H, Lymphocytes # (Auto) 1.4 L, Monocytes # ( Auto) 0.6, Eosinophils # (Auto) 0.1, Basophils # (Auto) 0.0, Calcium Level 8.0 L Vital Signs Date Time Temp Pulse Resp B/P (MAP) Pulse Ox O2 Delivery O2 Flow Rate FiO2 01/01/17 10:00 Nasal Cannula 3.0 01/01/17 09:51 114 01/01/17 09:49 146/70 01/01/17 08:52 98.0 18 96 I&O- Last 24 Hours up to 6 AM 01/01/17 05:59 Intake Total 360 ml Output Total 200 ml Balance 160 ml CURT MAYBERRY MD January 01, 2017 13:15
[2017-01-01] MEDS: WARFARIN SOD 4 MG TAB PO SCH (17:00)
[2017-01-01] MEDS ORDERED: WARFARIN SOD 2 MG TAB PO ONE (18:00)
[2017-01-01] MEDS: LEVEMIR (INSULIN DETEMIR) 1 UNITS/0.01ML SC SCH (21:00)
[2017-01-01] MEDS: predniSONE 10 MG TAB PO SCH (21:37)
[2017-01-01] MEDS: SIMVASTATIN 20 MG TAB PO SCH (21:37)
[2017-01-01 22:00] VITALS: BP 150/60
[2017-01-02] MEDS: cefTRIAXone SOD 1 GM in D5W MINI-BAG PLUS 50 ML IV SCH (02:16)
[2017-01-02] MEDS: IPRATROPIUM 0.5MG/ALBUTEROL 2.5MG INH SOL UD 3ML (DUONEB)(J7620) NEB SCH ×6 (02:40→23:47)
[2017-01-02 06:00] VITALS: BP 145/77
[2017-01-02 06:21] LABS: BASO % 0.2 % (0.0-1.0); EOS % 0.1 % (0.0-3.0); LARGE UNSTAINED CELL # 0.2 K/mm3 (0.0-0.4); LARGE UNSTAINED CELL % 1.9 % (0.0-4.0); LYMPH # 1.6 K/mm3 (1.5-4.5); MEAN CORPUSCULAR HEMOGLOBIN 29.2 pg (27.0-33.0); MEAN CORPUSCULAR HGB CONC 30.6 g/dl (32.0-36.5); MEAN CORPUSCULAR VOLUME 95.4 fl (80.0-96.0); MONO # 0.7 K/mm3 (0.0-0.8); MONO % 6.2 % (0.0-5.0); NEUTROPHILS # 9.3 K/mm3 (1.8-7.7); NEUTROPHILS % 79.6 % (36.0-66.0); PLATELET COUNT, AUTOMATED 194 k/mm3 (150-450); RED CELL DISTRIBUTION WIDTH 13.1 % (11.5-14.5); WHITE BLOOD COUNT 11.7 K/mm3 (4.0-10.0)
[2017-01-02 06:27] LABS: INR 1.67
[2017-01-02 06:33] LABS: ANION GAP 0 MEQ/L (8-16); BLOOD UREA NITROGEN 47 MG/DL (7-18); CALCIUM LEVEL 8.1 MG/DL (8.8-10.2); CARBON DIOXIDE LEVEL 39 MEQ/L (21-32); CHLORIDE LEVEL 101 MEQ/L (98-107); CREATININE FOR GFR 0.78 MG/DL (0.70-1.30); GLOMERULAR FILTRATION RATE > 60.0 (>49); GLUCOSE, FASTING 199 MG/DL (80-110); SODIUM LEVEL 140 MEQ/L (136-145)
[2017-01-02 06:34] LABS: POTASSIUM SERUM 5.8 MEQ/L (3.5-5.1)
[2017-01-02] MEDS ORDERED: SOD POLYSTYRENE SULFONATE SUSP 15 GM/60 ML UD PO ONE ×2 (07:45→16:00)
[2017-01-02] MEDS: HumaLOG INSULIN (NovoLOG) PER UNIT SC SCH ×4 (10:06→20:59)
[2017-01-02] MEDS: VITAMIN D 1,000 INTERNATIONAL UNITS TABLET PO SCH (10:07)
[2017-01-02] MEDS: TORSEMIDE 20 MG TAB PO SCH (10:07)
[2017-01-02] MEDS: PANTOPRAZOLE 40MG TAB (PROTONIX) PO SCH (10:07)
[2017-01-02] MEDS: predniSONE 10 MG TAB PO SCH (10:07)
[2017-01-02] MEDS: SENOKOT S TAB PO SCH ×2 (10:07→20:58)
[2017-01-02] MEDS: glipiZIDE XL 5 MG TABCR PO SCH (10:07)
[2017-01-02] MEDS: VITAMIN E 400 INTERNATIONAL UNITS CAP PO SCH (10:07)
[2017-01-02] MEDS: DIGOXIN 0.25 MG TAB PO SCH (10:08)
[2017-01-02] MEDS: MULTIVITAMINS/MINERALS THERAP 1 TAB PO SCH (10:08)
[2017-01-02] MEDS: CARVedilol 12.5 MG TAB PO SCH ×2 (10:08→20:59)
[2017-01-02] MEDS: ADVAIR DISKUS 250/50 INH PWD INH SCH ×2 (11:56→21:00)
--- NOTE | 2017-01-02 13:11 | IPNPDOC ---
Text Note Date of Service The patient was seen on 01/02/17. NOTE Subjective: Patient is a 66 year old male with a PMHx of COPD on 3L of O2 at home , A. fib, Tachy/dawson syndrome s/p PM, Chronic bilateral DVT, HTN, DM2, Systolic CHF, AMILCAR not compliant with CPAP who presented to the ER with shortness of breath for 3 days. Patient came to the ER after his breathing did not improved with nebulization and was found to be hypoxic at 76%. He was found to be wheezing. He was admitted to the hospitalist service for acute COPD exacerbation. Patient was seen and examined at the bedside. Patient is currently sitting up eating breakfast. He notes that he has no new complaitns. Objective: Vitals (See below) General: Lying in bed, no acute distress, comfortable, AAOx3 HEENT: NC, AT CVS: Irregularly irregular , +S1S2 Lungs: Fair air entry b/l, No wheezing appreciated this morning Abdomen: Soft, ND, NT, +BSx4 Extremities: +PPx4, - Edema, - Calf tenderness Assessment and plan: 1. Dyspnea - likely 2/2 acute on chronic hypercapnic and hypoxic respiratory failure - likely 2/2 acute COPD exacerbation - Presented to ER with SOB not improved with nebulization treatment - Physical with no respiratory distress, no wheezing today - Prior ABGs again reveals CO2 retention; CMP reveals chronic CO2 retention - CXR reveals diffuse chronic fibro-atelectatic changes, similar to prior - c/w Advair, Duoneb and Ceftriaxone (Day #5) - s/p solumedrol; Will continue to taper prednisone - Evaluation for Trilogy ventilator for home 2. History of AMILCAR - Has had sleep study completed and patient was told he needed a CPAP - Has had titration study completed for mask fitting - Patient has a CPAP machine at home that he reports does not function correctly - Will c/w O2 therapy at night - Will need referral to pulmonary for another sleep study - Will order CPAP at night with prior settings - Evaluation for Trilogy ventilator for home 3. NIDDM2 - c/w ISS, Levemir and Glipizide 4. HTN - BP well controlled - c/w Carvedilol and Lisinopril with holding parameters 5. Chronic bilateral DVT - US reveals persistent DVT, unchanged - INR of 1.67 - c/w Coumadin 4mg 6. DLP - c/w simvastatin 7. Chronic systolic CHF - c/w Torsemide 8. A. fib - c/w Digoxin and Carvedilol - c/w Coumadin 9. GI prophylaxis - c/w Protonix 10. DVT prophylaxis - already on full anticoagulation with Coumadin VS,Fishbone, I+O VS, Fishbone, I+O Laboratory Tests 01/02/17 05:53 Red Blood Count 3.72 L, Mean Corpuscular Volume 95.4, Mean Corpuscular Hemoglobin 29.2, Mean Corpuscular Hemoglobin Concent 30.6 L, Red Cell Distribution Width 13.1, Neutrophils (%) (Auto) 79.6 H, Lymphocytes (%) (Auto) 12.0 L, Monocytes (%) (Auto) 6.2 H, Eosinophils (%) (Auto) 0.1, Basophils (%) ( Auto) 0.2, Neutrophils # (Auto) 9.3 H, Lymphocytes # (Auto) 1.6, Monocytes # ( Auto) 0.7, Eosinophils # (Auto) 0.0, Basophils # (Auto) 0.0, Calcium Level 8.1 L Vital Signs Date Time Temp Pulse Resp B/P (MAP) Pulse Ox O2 Delivery O2 Flow Rate FiO2 01/02/17 10:08 94 01/02/17 10:08 145/77 01/02/17 06:00 97.4 16 95 Nasal Cannula 3.0 I&O- Last 24 Hours up to 6 AM 01/02/17 05:59 Intake Total 0 ml Output Total 0 ml Balance 0 ml CURT MAYBERRY MD January 02, 2017 13:11
[2017-01-02 15:47] LABS: ANION GAP 1 MEQ/L (8-16); BLOOD UREA NITROGEN 48 MG/DL (7-18); CALCIUM LEVEL 8.4 MG/DL (8.8-10.2); CARBON DIOXIDE LEVEL 41 MEQ/L (21-32); CHLORIDE LEVEL 100 MEQ/L (98-107); CREATININE FOR GFR 0.97 MG/DL (0.70-1.30); GLOMERULAR FILTRATION RATE > 60.0 (>49); GLUCOSE, FASTING 184 MG/DL (80-110); SODIUM LEVEL 142 MEQ/L (136-145)
[2017-01-02 15:53] LABS: POTASSIUM SERUM 5.2 MEQ/L (3.5-5.1)
[2017-01-02] MEDS: WARFARIN SOD 4 MG TAB PO SCH (18:47)
--- NOTE | 2017-01-02 18:54 | ECGEPIP ---
Stationary ECG Study [facility] Test Date: 2017-01-02 Pat Name: EAGLE DAY Department: Room: [place] [address] Gender: M Manager Chemistry: : 1950 Requested By: CURT MAYBERRY Order Number: [id number] Reading MD: Hoang Kenny Measurements Intervals [place] Rate: 111 P: SD: 0 QRS: -58 QRSD: 139 T: 116 QT: 292 QTc: 398 Interpretive Statements Atypical atrial flutter with variable AV conduction and rapid ventricular response. RIGHT BUNDLE BRANCH BLOCK LEFT ANTERIOR FASCICULAR BLOCK VOLTAGE CRITERIA FOR LVH Repolarization abnormalities secondary to RBBB, +/- RVH, +/- LVH,+/- myocardial ischemia. Rhythm change compared with 12/28/2016. Electronically Signed On 01-02-2017 18:54:22 EDT by Hoang Kenny
[2017-01-02] MEDS: predniSONE 20 MG TAB PO SCH (20:58)
[2017-01-02] MEDS: SIMVASTATIN 20 MG TAB PO SCH (20:58)
[2017-01-02] MEDS: LEVEMIR (INSULIN DETEMIR) 1 UNITS/0.01ML SC SCH (20:59)
[2017-01-02 22:00] VITALS: BP 168/72
[2017-01-03] MEDS: cefTRIAXone SOD 1 GM in D5W MINI-BAG PLUS 50 ML IV SCH (02:14)
[2017-01-03] MEDS: IPRATROPIUM 0.5MG/ALBUTEROL 2.5MG INH SOL UD 3ML (DUONEB)(J7620) NEB SCH ×5 (03:25→20:34)
[2017-01-03 05:57] LABS: BASO % 0.1 % (0.0-1.0); EOS # 0.1 K/mm3 (0.0-0.50); EOS % 0.5 % (0.0-3.0); LARGE UNSTAINED CELL # 0.1 K/mm3 (0.0-0.4); LARGE UNSTAINED CELL % 1.2 % (0.0-4.0); LYMPH # 1.5 K/mm3 (1.5-4.5); LYMPH % 12.8 % (24.0-44.0); MEAN CORPUSCULAR HEMOGLOBIN 28.8 pg (27.0-33.0); MEAN CORPUSCULAR VOLUME 96.1 fl (80.0-96.0); MONO # 0.7 K/mm3 (0.0-0.8); MONO % 5.4 % (0.0-5.0); NEUTROPHILS # 9.5 K/mm3 (1.8-7.7); NEUTROPHILS % 79.9 % (36.0-66.0); PLATELET COUNT, AUTOMATED 205 k/mm3 (150-450); RED CELL DISTRIBUTION WIDTH 13.1 % (11.5-14.5); WHITE BLOOD COUNT 11.9 K/mm3 (4.0-10.0)
[2017-01-03 06:00] VITALS: BP 169/72
[2017-01-03 06:00] LABS: INR 1.84
[2017-01-03 06:13] LABS: ANION GAP 2 MEQ/L (8-16); BLOOD UREA NITROGEN 41 MG/DL (7-18); CALCIUM LEVEL 7.8 MG/DL (8.8-10.2); CARBON DIOXIDE LEVEL 42 MEQ/L (21-32); CHLORIDE LEVEL 97 MEQ/L (98-107); CREATININE FOR GFR 0.78 MG/DL (0.70-1.30); GLOMERULAR FILTRATION RATE > 60.0 (>49); GLUCOSE, FASTING 184 MG/DL (80-110); POTASSIUM SERUM 4.5 MEQ/L (3.5-5.1); SODIUM LEVEL 141 MEQ/L (136-145)
[2017-01-03] MEDS: ADVAIR DISKUS 250/50 INH PWD INH SCH ×2 (08:01→21:00)
[2017-01-03] MEDS: HumaLOG INSULIN (NovoLOG) PER UNIT SC SCH ×4 (09:12→20:55)
[2017-01-03] MEDS: MULTIVITAMINS/MINERALS THERAP 1 TAB PO SCH (09:13)
[2017-01-03] MEDS: PANTOPRAZOLE 40MG TAB (PROTONIX) PO SCH (09:13)
[2017-01-03] MEDS: SENOKOT S TAB PO SCH ×2 (09:13→20:55)
[2017-01-03] MEDS: DIGOXIN 0.25 MG TAB PO SCH (09:13)
[2017-01-03] MEDS: predniSONE 20 MG TAB PO SCH (09:13)
[2017-01-03] MEDS: VITAMIN E 400 INTERNATIONAL UNITS CAP PO SCH (09:14)
[2017-01-03] MEDS: glipiZIDE XL 5 MG TABCR PO SCH (09:14)
[2017-01-03] MEDS: TORSEMIDE 20 MG TAB PO SCH (09:14)
[2017-01-03] MEDS: CARVedilol 12.5 MG TAB PO SCH ×2 (09:14→20:54)
[2017-01-03] MEDS: VITAMIN D 1,000 INTERNATIONAL UNITS TABLET PO SCH (09:14)
--- NOTE | 2017-01-03 09:55 | IPNPDOC ---
Text Note Date of Service The patient was seen on 01/03/17. NOTE Subjective: Patient is a 66 year old male with a PMHx of COPD on 3L of O2 at home , A. fib, Tachy/dawson syndrome s/p PM, Chronic bilateral DVT, HTN, DM2, Systolic CHF, AMILCAR not compliant with CPAP who presented to the ER with shortness of breath for 3 days. Patient came to the ER after his breathing did not improved with nebulization and was found to be hypoxic at 76%. He was found to be wheezing. He was admitted to the hospitalist service for acute COPD exacerbation. Patient was seen and examined at the bedside. Patient was concerned about CPAP machine at night. He was able to tolerate it for a portion of the night. Advised that it will take practise, but will ultimately benefit him. Objective: Vitals (See below) General: Lying in bed, no acute distress, comfortable, AAOx3 HEENT: NC, AT CVS: Irregularly irregular , +S1S2 Lungs: Fair air entry b/l, No wheezing appreciated Abdomen: Soft, ND, NT, +BSx4 Extremities: +PPx4, - Edema, - Calf tenderness Assessment and plan: 1. Dyspnea - likely 2/2 acute on chronic hypercapnic and hypoxic respiratory failure - likely 2/2 acute COPD exacerbation - Presented to ER with SOB not improved with nebulization treatment - Physical with no respiratory distress, no wheezing today - Prior ABGs again reveals CO2 retention; CMP reveals chronic CO2 retention - CXR reveals diffuse chronic fibro-atelectatic changes, similar to prior - c/w Advair, Duoneb and Ceftriaxone (Day #6) - s/p solumedrol; c/w Prednisone taper - Discussed with PFS / Social workers about establishing Trilogy ventilator for home - in process 2. History of AMILCAR - Has had sleep study completed and patient was told he needed a CPAP - Has had titration study completed for mask fitting - Patient has a CPAP machine at home that he reports does not function correctly - c/w CPAP at night 3. NIDDM2 - c/w ISS, Levemir and Glipizide 4. HTN - BP well controlled - c/w Carvedilol and Lisinopril with holding parameters 5. Chronic bilateral DVT - US reveals persistent DVT, unchanged - INR of 1.84 - c/w Coumadin 4mg 6. DLP - c/w simvastatin 7. Chronic systolic CHF - c/w Torsemide 8. A. fib - c/w Digoxin and Carvedilol - c/w Coumadin 9. s/p Hyperkalemia 10. GI prophylaxis - c/w Protonix 11. DVT prophylaxis - already on full anticoagulation with Coumadin VS,Fishbone, I+O VS, Fishbone, I+O Laboratory Tests 01/02/17 15:05 Calcium Level 8.4 L 01/03/17 05:27 Calcium Level 7.8 L, Red Blood Count 3.83 L, Mean Corpuscular Volume 96.1 H, Mean Corpuscular Hemoglobin 28.8, Mean Corpuscular Hemoglobin Concent 30.0 L, Red Cell Distribution Width 13.1, Neutrophils (%) (Auto) 79.9 H, Lymphocytes (% ) (Auto) 12.8 L, Monocytes (%) (Auto) 5.4 H, Eosinophils (%) (Auto) 0.5, Basophils (%) (Auto) 0.1, Neutrophils # (Auto) 9.5 H, Lymphocytes # (Auto) 1.5, Monocytes # (Auto) 0.7, Eosinophils # (Auto) 0.1, Basophils # (Auto) 0.0 Vital Signs Date Time Temp Pulse Resp B/P (MAP) Pulse Ox O2 Delivery O2 Flow Rate FiO2 01/03/17 09:34 Nasal Cannula 3.0 01/03/17 09:14 101 169/72 01/03/17 06:00 96.6 20 95 I&O- Last 24 Hours up to 6 AM 01/03/17 06:00 Intake Total 2280 ml Output Total 2900 ml Balance -620 ml CURT MAYBERRY MD January 03, 2017 09:55
[2017-01-03 11:41] VITALS: O2SAT 90
[2017-01-03 14:00] VITALS: BP 148/72
[2017-01-03] MEDS: WARFARIN SOD 4 MG TAB PO SCH (18:23)
[2017-01-03] MEDS: SIMVASTATIN 20 MG TAB PO SCH (20:54)
[2017-01-03] MEDS: predniSONE 10 MG TAB PO SCH (20:54)
[2017-01-03] MEDS: LEVEMIR (INSULIN DETEMIR) 1 UNITS/0.01ML SC SCH (20:55)
[2017-01-03 22:00] VITALS: BP 147/71
[2017-01-04] MEDS: IPRATROPIUM 0.5MG/ALBUTEROL 2.5MG INH SOL UD 3ML (DUONEB)(J7620) NEB SCH ×5 (00:07→15:06)
[2017-01-04] MEDS: cefTRIAXone SOD 1 GM in D5W MINI-BAG PLUS 50 ML IV SCH (02:03)
[2017-01-04 06:00] VITALS: BP 130/81
[2017-01-04 06:45] LABS: BASO % 0.3 % (0.0-1.0); EOS # 0.2 K/mm3 (0.0-0.50); EOS % 1.5 % (0.0-3.0); LARGE UNSTAINED CELL # 0.2 K/mm3 (0.0-0.4); LARGE UNSTAINED CELL % 1.4 % (0.0-4.0); LYMPH # 3.1 K/mm3 (1.5-4.5); LYMPH % 21.2 % (24.0-44.0); MEAN CORPUSCULAR HEMOGLOBIN 29.8 pg (27.0-33.0); MEAN CORPUSCULAR HGB CONC 31.6 g/dl (32.0-36.5); MEAN CORPUSCULAR VOLUME 94.1 fl (80.0-96.0); MONO # 1.1 K/mm3 (0.0-0.8); MONO % 7.8 % (0.0-5.0); NEUTROPHILS # 9.3 K/mm3 (1.8-7.7); NEUTROPHILS % 67.8 % (36.0-66.0); PLATELET COUNT, AUTOMATED 208 k/mm3 (150-450); RED CELL DISTRIBUTION WIDTH 13.1 % (11.5-14.5); WHITE BLOOD COUNT 13.7 K/mm3 (4.0-10.0)
[2017-01-04 06:48] LABS: INR 2.2
[2017-01-04 06:59] LABS: BLOOD UREA NITROGEN 33 MG/DL (7-18); CALCIUM LEVEL 7.9 MG/DL (8.8-10.2); CHLORIDE LEVEL 95 MEQ/L (98-107); CREATININE FOR GFR 0.66 MG/DL (0.70-1.30); GLOMERULAR FILTRATION RATE > 60.0 (>49); GLUCOSE, FASTING 133 MG/DL (80-110); POTASSIUM SERUM 4.1 MEQ/L (3.5-5.1); SODIUM LEVEL 142 MEQ/L (136-145)
[2017-01-04 07:08] LABS: ANION GAP 0 MEQ/L (8-16); CARBON DIOXIDE LEVEL 47 MEQ/L (21-32)
[2017-01-04] MEDS: ADVAIR DISKUS 250/50 INH PWD INH SCH (07:31)
[2017-01-04 08:25] VITALS: BP 130/81
[2017-01-04] MEDS: CARVedilol 12.5 MG TAB PO SCH (08:25)
[2017-01-04] MEDS: VITAMIN D 1,000 INTERNATIONAL UNITS TABLET PO SCH (08:25)
[2017-01-04] MEDS: SENOKOT S TAB PO SCH (08:25)
[2017-01-04] MEDS: VITAMIN E 400 INTERNATIONAL UNITS CAP PO SCH (08:25)
[2017-01-04] MEDS: HumaLOG INSULIN (NovoLOG) PER UNIT SC SCH ×2 (08:25→12:48)
[2017-01-04] MEDS: MULTIVITAMINS/MINERALS THERAP 1 TAB PO SCH (08:25)
[2017-01-04] MEDS: glipiZIDE XL 5 MG TABCR PO SCH (08:26)
[2017-01-04] MEDS: DIGOXIN 0.25 MG TAB PO SCH (08:26)
[2017-01-04] MEDS: PANTOPRAZOLE 40MG TAB (PROTONIX) PO SCH (08:26)
[2017-01-04] MEDS: TORSEMIDE 20 MG TAB PO SCH (08:26)
[2017-01-04] MEDS: predniSONE 10 MG TAB PO SCH (08:26)
--- NOTE | 2017-01-04 10:08 | IPNPDOC ---
Text Note Date of Service The patient was seen on 01/04/17. NOTE Subjective: Patient is a 66 year old male with a PMHx of COPD on 3L of O2 at home , A. fib, Tachy/dawson syndrome s/p PM, Chronic bilateral DVT, HTN, DM2, Systolic CHF, AMILCAR not compliant with CPAP who presented to the ER with shortness of breath for 3 days. Patient came to the ER after his breathing did not improved with nebulization and was found to be hypoxic at 76%. He was found to be wheezing. He was admitted to the hospitalist service for acute COPD exacerbation. Patient was seen and examined at the bedside. Patient has been tolerating CPAP and is using it for longer periods of time. His breathing continues to improve with support. Objective: Vitals (See below) General: Lying in bed, no acute distress, comfortable, AAOx3 HEENT: NC, AT CVS: Irregularly irregular , +S1S2 Lungs: Fair air entry b/l, No wheezing appreciated Abdomen: Soft, ND, NT, +BSx4 Extremities: +PPx4, - Edema, - Calf tenderness Assessment and plan: 1. Dyspnea - likely 2/2 acute on chronic hypercapnic and hypoxic respiratory failure - likely 2/2 acute COPD exacerbation - Presented to ER with SOB, not improved with nebulization treatment - Physical with no respiratory distress, no wheezing noted - Labs and ABG show signs of chronic CO2 retention and acute exacerbation with CO2 retention - CXR reveals diffuse chronic fibro-atelectatic changes, similar to prior - c/w Advair, Duoneb and Ceftriaxone (Day #7) - s/p solumedrol; c/w Prednisone taper - Today will bet the end of antibiotic therapy - Discussed with PFS / Social workers about establishing Trilogy ventilator for home; may be completed today - Will work on coverage of inhaled therapy as an outpatient 2. History of AMILCAR - Has had sleep study completed and patient was told he needed a CPAP - Has had titration study completed for mask fitting - Patient has a CPAP machine at home that he reports does not function correctly - c/w CPAP at night 3. NIDDM2 - c/w ISS, Levemir and Glipizide 4. HTN - BP well controlled - c/w Carvedilol and Lisinopril with holding parameters 5. Chronic bilateral DVT - US reveals persistent DVT, unchanged - INR therapeutic at 2.20 - c/w Coumadin 4mg 6. DLP - c/w simvastatin 7. Chronic systolic CHF - c/w Torsemide 8. A. fib - c/w Digoxin and Carvedilol - c/w Coumadin 9. s/p Hyperkalemia 10. GI prophylaxis - c/w Protonix 11. DVT prophylaxis - already on full anticoagulation with Coumadin Disposition: Patient needs the trilogy noninvasive vent due to chronic respiratory failure 2/ 2 COPD. The AVAP-AE mode will target his tidal volume based on his ideal body weight. It uses an auto breath rate that allows the patient to exhale down to baseline where traditional BIPAP dose not and can cause breath stacking and air trapping. The trilogy also offers the sip and puff mode that can be used during the day with mouth piece ventilation. The patient has had several exacerbations and was recently hospitalizeed due to hypercapnic respiratory failure. Using the trilogy will rest his respiratory muscles, and eliminate air trapping. The Trilogy vent will improve his quality of life and reduce hospital admissions. The Trilogy provides 6 hours of battery life which can be used in the event of a power outage as interruption of ventilation could lead to serious medical consequence. It will provide the pulmonary support the patient needs. - Will plan on discharge today if Trilogy has been established VSRachael, I+O VSRachael, I+O Laboratory Tests 01/04/17 06:17 Red Blood Count 3.84 L, Mean Corpuscular Volume 94.1, Mean Corpuscular Hemoglobin 29.8, Mean Corpuscular Hemoglobin Concent 31.6 L, Red Cell Distribution Width 13.1, Neutrophils (%) (Auto) 67.8 H, Lymphocytes (%) (Auto) 21.2 L, Monocytes (%) (Auto) 7.8 H, Eosinophils (%) (Auto) 1.5, Basophils (%) ( Auto) 0.3, Neutrophils # (Auto) 9.3 H, Lymphocytes # (Auto) 3.1, Monocytes # ( Auto) 1.1 H, Eosinophils # (Auto) 0.2, Basophils # (Auto) 0.0, Calcium Level 7.9 L Vital Signs Date Time Temp Pulse Resp B/P (MAP) Pulse Ox O2 Delivery O2 Flow Rate FiO2 01/04/17 08:26 98 01/04/17 08:25 130/81 01/04/17 06:00 97.4 18 94 Nasal Cannula 2.0 I&O- Last 24 Hours up to 6 AM 01/04/17 06:00 Intake Total 1680 ml Output Total 750 ml Balance 930 ml CURT MAYBERRY MD January 04, 2017 10:07
[2017-01-04] MEDS ORDERED: COUM1TAB19 PO (12:55)
[2017-01-04] MEDS ORDERED: PRED10TA PO (12:55)
[2017-01-04] MEDS ORDERED: ADV250INH INH (12:55)
[2017-01-04 14:00] VITALS: BP 137/67
[2017-01-04] MEDS ORDERED: BUDE0.5S6 INH (14:32)
[2017-01-04] MEDS ORDERED: BROV15NE IN (14:32)
--- NOTE | 2017-01-04 14:39 | DSES ---
DATE OF ADMISSION: 12/29/2016 DATE OF DISCHARGE: 01/04/2017 PRIMARY CARE PROVIDER: CHICHO Coy REFERRING PHYSICIAN: None. CONSULTING PHYSICIAN: None. CONDITION ON DISCHARGE: Stable. FINAL DIAGNOSIS: Dyspnea, likely secondary to acute on chronic hypercapnic and hypoxic respiratory failure, likely secondary to acute chronic obstructive pulmonary disease (COPD) exacerbation. PROCEDURES: None. HISTORY OF PRESENT ILLNESS: The patient is a 66-year-old male with a past medical history of chronic obstructive pulmonary disease (COPD) on three liters of oxygen at home, atrial fibrillation, tachycardia/bradycardia syndrome status post pacemaker, chronic bilateral deep vein thrombosis (DVT), hypertension, diabetes mellitus type 2, systolic congestive heart failure, obstructive sleep apnea, not compliant with continuous positive airway pressure (CPAP) who presented to the emergency room with shortness of breath for three days. The patient came to the emergency room (ER) after his breathing did not improve with nebulization and was found to be hypoxic at 76%. He was found to be wheezing in the emergency room and he was admitted to the hospitalist service for acute COPD exacerbation. HOSPITAL COURSE: 1. Dyspnea, likely secondary to acute chronic hypercapnic and hypoxic respiratory failure, likely secondary to acute chronic obstructive pulmonary disease (COPD) exacerbation. He presented to the emergency room (ER) with shortness of breath, not improved with nebulization treatment with no respiratory distress or wheezing was noted at this time. Laboratories and arterial blood gas (ABG) show signs of chronic CO2 retention, acute exacerbation of CO2 retention. Chest x-ray revealed diffuse chronic fibroatelectatic changes similar to prior. Continue with Advair, DuoNeb and ceftriaxone which is day number seven today. He is status post Solu-Medrol. He has been put on prednisone and will continue prednisone taper upon discharge. Discussed with patient and family services and social workers about establishing trilogy ventilator for home which has been established and will be available to the patient upon discharge today. 1. History of obstructive sleep apnea. He has had sleep study completed in the past which was positive. The patient was prescribed a continuous positive airway pressure (CPAP) machine which he has but it is no longer functional and he does not use it anymore. We will be giving him a trilogy ventilator for home. 3. [id number] diabetes mellitus, type 2. Continue with insulin sliding scale, Levemir and glipizide while inpatient, and will be put back on glipizide and metformin upon discharge. 4. Hypertension. Blood pressure is well-controlled. Continue with carvedilol and lisinopril with holding parameters. 5. Chronic bilateral deep vein thrombosis (DVT). Ultrasound reveals persistent DVT which is unchanged. International normalized ratio (INR) is therapeutic at 2.20 upon discharge. The patient will be discharged home with an adjusted dose of Coumadin and has been advised to followup with his primary care provider and has been given a prescription for an INR check. 6. Dyslipidemia. Continue with simvastatin. 7. Chronic systolic congestive heart failure. Continue with torsemide. 8. Atrial fibrillation. Continue with digoxin and carvedilol. Continue with Coumadin. 9. Status post hyperkalemia. 10. Gastrointestinal (GI) prophylaxis. Continue with Protonix. 11. DVT prophylaxis. Already on full anticoagulation with Coumadin. DISCHARGE MEDICATIONS: The patient is being discharged home with the following medication list: - acetaminophen 1000 mg by mouth every six hours as needed for pain - albuterol inhaled four times a day as needed for shortness of breath - carvedilol 12.5 mg by mouth twice a day - cholecalciferol 1000 units by mouth daily - digoxin 0.25 mg by mouth daily - glipizide 5 mg by mouth daily - lisinopril 5 mg by mouth daily - metformin 500 mg by mouth daily - multivitamin one tablet by mouth daily - simvastatin 20 mg by mouth at bedtime - torsemide 20 mg by mouth daily - vitamin E 400 units by mouth daily Stopped medications include: - warfarin 2.5 mg by mouth daily New medications prescribed include: - prednisone 10 mg to be taken as directed - Advair 250/50 one puff inhaled twice a day - warfarin 3 mg by mouth daily DISCHARGE INSTRUCTIONS: The patient has been advised to followup with his primary care provider within the next seven days. He has been advised to followup with pulmonary within the next two weeks. He has been advised to remain compliant with treatment plan and medications and return to the emergency room if he experiences any problems. TIME SPENT ON DISCHARGE: 35 minutes.
[2017-01-04] MEDS ORDERED: METF1000 PO (16:05)
[2017-01-04] MEDS ORDERED: SALMDISK INH (17:06)
== END 2017-01-04 17:25 | disposition home or self-care (01) | DRG 189 ==
LOC: M ED 12-29 00:14 → M ED INP 12-29 00:15 → M MS5PR 12-29 00:44
PROVIDERS: ADMIT Internal Medicine Nephrology; ATTEND Internal Medicine
DX: J96.22 Acute and chronic respiratory failure with hypercapnia (principal); J44.1 Chronic obstructive pulmonary disease with (acute) exacerbation; I50.22 Chronic systolic (congestive) heart failure; I82.513 Chronic embolism and thrombosis of femoral vein, bilateral; I82.533 Chronic embolism and thrombosis of popliteal vein, bilateral; J96.21 Acute and chronic respiratory failure with hypoxia; I48.91 Unspecified atrial fibrillation; Z95.0 Presence of cardiac pacemaker; I11.0 Hypertensive heart disease with heart failure; E11.9 Type 2 diabetes mellitus without complications; G47.33 Obstructive sleep apnea (adult) (pediatric); Z91.19 Patient's noncompliance with other medical treatment and regimen; E78.5 Hyperlipidemia, unspecified; Z79.01 Long term (current) use of anticoagulants; Z79.899 Other long term (current) drug therapy; Z91.010 Allergy to peanuts; Z88.8 Allergy status to other drugs, medicaments and biological substances; F17.210 Nicotine dependence, cigarettes, uncomplicated